=== PATIENT | female | born 1990 | race Caucasian/White ===

== ENCOUNTER → 2016-07-19 | Outpatient (CLI) | payer OTHER ==
[~2016-07-19] VITALS: Ht 157.5 cm; Wt 77.3 kg
[~2016-07-19] MED LIST: HYDR-4274 PO; LIDOCAINE 2% INJ 100 MG/5 ML SDV (FOR ANES.) As Ordered ONE; NS 1,000 ML IV SCH; OMEP20CA3 PO; PAXI30TA11 PO; PROPOFOL 500 MG/50 ML VIAL As Ordered ONE; ZONI100C2 PO
--- NOTE | 2016-07-19 12:56 | ROOR ---
Patient Name: Anisa Fiore Procedure Date: 07/19/2016 12:43 PM Date of : 1990 Age: 26 Room: [facility] Gender: Female Note Status: Finalized Procedure: Upper GI endoscopy Indications: Functional Dyspepsia, Heartburn Providers: Maurisio BELLA MD Referring MD: Ben Glez Requesting Provider: Medicines: Monitored Anesthesia Care Complications: No immediate complications. Procedure: Pre-Anesthesia Assessment: - The heart rate, respiratory rate, oxygen saturations, blood pressure, adequacy of pulmonary ventilation, and response to care were monitored throughout the procedure. The Endoscope was introduced through the mouth, and advanced to the second part of duodenum. The upper GI endoscopy was accomplished without difficulty. The patient tolerated the procedure well. Findings: The esophagus was normal. The stomach was normal. The examined duodenum was normal. Impression: - Normal esophagus. - Normal stomach. - Normal examined duodenum. - No specimens collected. Recommendation: - Continue present medications. - Observe patient's clinical course. Maurisio Bella MD Maurisio BELLA MD 07/19/2016 12:55:46 PM This report has been signed electronically. Number of Addenda: 0 Note Initiated On: 07/19/2016 12:43 PM Estimated Blood Loss: Estimated blood loss: none.
--- NOTE | 2016-07-19 13:06 | ROOR ---
Patient Name: Anisa Fiore Procedure Date: 07/19/2016 12:44 PM Date of : 1990 Age: 26 Room: OP02 Gender: Female Note Status: Finalized Procedure: Colonoscopy Indications: Hematochezia, Change in bowel habits Providers: Maurisio BELLA MD Referring MD: Ben Glez Requesting Provider: Medicines: Monitored Anesthesia Care Complications: No immediate complications. Procedure: Pre-Anesthesia Assessment: - The heart rate, respiratory rate, oxygen saturations, blood pressure, adequacy of pulmonary ventilation, and response to care were monitored throughout the procedure. The Colonoscope was introduced through the anus and advanced to 10 cm into the ileum. The colonoscopy was performed without difficulty. The patient tolerated the procedure well. The quality of the bowel preparation was good. Findings: The perianal and digital rectal examinations were normal. (Exam: Complete, Prep: Good or Excellent.) Retroflexion in the right colon was performed. The entire examined colon appeared normal on direct and retroflexion views. The terminal ileum appeared normal. Small Internal Hemorrhoids. Impression: - (Exam: Complete, Prep: Good or Excellent.) - The entire examined colon is normal on direct and retroflexion views. - The examined portion of the ileum was normal. - Small Internal Hemorrhoids. - No specimens collected. Recommendation: - Use fiber, for example Citrucel, Fibercon, Konsyl or Metamucil. Maurisio Bella MD Maurisio BELLA MD 07/19/2016 1:06:10 PM This report has been signed electronically. Number of Addenda: 0 Note Initiated On: 07/19/2016 12:44 PM Estimated Blood Loss: Estimated blood loss: none.
[2016-07-19 13:25] VITALS: BP 108/55
== END ==
LOC: M OPP 11:37
PROVIDERS: ATTEND Internal Medicine Gastroenterology
DX: K92.1 Melena (principal); K64.0 First degree hemorrhoids; R19.4 Change in bowel habit; K30 Functional dyspepsia; F32.9 Major depressive disorder, single episode, unspecified; G43.909 Migraine, unspecified, not intractable, without status migrainosus; Z88.2 Allergy status to sulfonamides; Z80.3 Family history of malignant neoplasm of breast; Z80.0 Family history of malignant neoplasm of digestive organs; Z80.1 Family history of malignant neoplasm of trachea, bronchus and lung; Z79.899 Other long term (current) drug therapy

== ENCOUNTER 2016-11-05 15:06 | Emergency (ER) | payer OTHER ==
[~2016-11-05] VITALS: Ht 157.5 cm; Wt 75.9 kg
[~2016-11-05 15:06] MED LIST changes: -LIDOCAINE 2% INJ 100 MG/5 ML SDV (FOR ANES.) As Ordered ONE; -NS 1,000 ML IV SCH; -PROPOFOL 500 MG/50 ML VIAL As Ordered ONE
[2016-11-05 15:07] VITALS: BP 126/79
[2016-11-05] MEDS ORDERED: MIRT30TA2 PO (15:21)
[2016-11-05] MEDS ORDERED: CLON0.5T PO (15:21)
--- NOTE | 2016-11-06 14:21 | ECGEPIP ---
Stationary ECG Study [facility] - ED Test Date: 2016-11-05 Pat Name: ANTONETTE BORJAS Department: Room: - Gender: F [employer] Operator: enid : 1990 Requested By: Chanelle Gardner Order Number: [id number] Reading MD: Chanelle Gardner Measurements Intervals Tiona Rate: 106 P: 71 NH: 158 QRS: 76 QRSD: 91 T: 55 QT: 325 QTc: 433 Interpretive Statements SINUS TACHYCARDIA POSSIBLE LEFT ATRIAL ENLARGEMENT NONSPECIFIC T-WAVE ABNORMALITY ABNORMAL RHYTHM ECG NO PRIOR FOR COMPARISON Electronically Signed On 11-06-2016 14:21:42 EDT by Chanelle Gardner
== END 2016-11-05 16:36 | disposition left against medical advice (07) ==
LOC: M ED 16:18
DX: R07.9 Chest pain, unspecified (principal); Z79.899 Other long term (current) drug therapy; Z88.2 Allergy status to sulfonamides; F41.9 Anxiety disorder, unspecified; F32.9 Major depressive disorder, single episode, unspecified; Z53.29 Procedure and treatment not carried out because of patient's decision for other reasons

== ENCOUNTER → 2016-12-16 | Outpatient (REF) | payer OTHER ==
[~2016-12-16] MED LIST changes: +CLON0.5T PO; -HYDR-4274 PO; +HYDR50TA70 PO; +MIRT30TA2 PO
== END ==
LOC: M LAB REF 09:22
PROVIDERS: ATTEND Physician Assistant
DX: M54.5 Low back pain (principal)

== ENCOUNTER → 2020-04-13 | Outpatient (CLI) | payer OTHER ==
[~2020-04-13] MED LIST changes: -CLON0.5T PO; +CLON0.5T2 PO; +MIRT1TAB16 PO; -MIRT30TA2 PO; +OMEP1CAP73 PO; -OMEP20CA3 PO; +ZONI100C17 PO; -ZONI100C2 PO
[2020-04-13 10:18] LABS: BASO % 0.4 % (0.0-1.0); EOS # 0.1 10^3/uL (0.0-0.5); EOS % 0.8 % (0.0-3.0); HEMATOCRIT 42.3 % (36.0-47.0); HEMOGLOBIN 14.7 g/dl (12.0-15.5); LYMPH # 2.4 10^3/uL (1.5-5.0); LYMPH % 23.7 % (24.0-44.0); MEAN CORPUSCULAR HEMOGLOBIN 30.5 pg (27.0-33.0); MEAN CORPUSCULAR HGB CONC 34.8 g/dl (32.0-36.5); MEAN CORPUSCULAR VOLUME 87.8 fl (80.0-96.0); MONO # 0.7 10^3/uL (0.0-0.8); MONO % 6.4 % (0.0-5.0); NEUTROPHILS % 68.3 % (36.0-66.0); PLATELET COUNT, AUTOMATED 191 10^3/uL (150-450); RED BLOOD COUNT 4.82 10^6/uL (4.00-5.40); WHITE BLOOD COUNT 10.3 10^3/uL (4.0-10.0)
[2020-04-13 10:54] LABS: ALBUMIN 4.5 GM/DL (3.2-5.2); ALT/SGPT 15 U/L (12-78); BILIRUBIN,TOTAL 0.5 MG/DL (0.2-1.0); BLOOD UREA NITROGEN 14 MG/DL (7-18); CALCIUM LEVEL 9.8 MG/DL (8.5-10.1); CARBON DIOXIDE LEVEL 29 MEQ/L (21-32); CHLORIDE LEVEL 106 MEQ/L (98-107); CHOLESTEROL LEVEL 154 MG/DL (<200); CHOLESTEROL RISK RATIO 3.276 (<5); CREATININE FOR GFR 0.84 MG/DL (0.55-1.30); FREE T4 0.95 NG/DL (0.76-1.46); GLOMERULAR FILTRATION RATE > 60.0 (>60); GLUCOSE, FASTING 89 MG/DL (70-100); HDL CHOLESTEROL 47 MG/DL (>40); LDL CHOLESTEROL 90 MG/DL (<100); NON-HDL-C 107 MG/DL; POTASSIUM SERUM 4.3 MEQ/L (3.5-5.1); SODIUM LEVEL 139 MEQ/L (136-145); TOTAL PROTEIN 8.3 GM/DL (6.4-8.2); TRIGLYCERIDES LEVEL 83 MG/DL (<150)
== END ==
LOC: M LAB 09:39
PROVIDERS: ATTEND Student in an Organized Health Care Education/Training Program
DX: F41.8 Other specified anxiety disorders (principal)

== ENCOUNTER → 2020-05-23 | Outpatient (CLI) | payer SELFPAY | LOC: M LABSMTC 17:50 | PROVIDERS: ATTEND Pediatrics | DX: Z11.59 Encounter for screening for other viral diseases (principal) ==

== ENCOUNTER → 2021-02-06 | Outpatient (REF) | LOC: M LAB 09:50 | PROVIDERS: ATTEND Nurse Practitioner Adult Health | DX: Z01.84 Encounter for antibody response examination (principal) ==

== ENCOUNTER 2021-03-02 07:04 | Emergency (ER) | payer OTHER, SELFPAY ==
[~2021-03-02] VITALS: Ht 160 cm; Wt 64.2 kg
[2021-03-02] MEDS: GASTROGRAFIN SOLUTION 30ML PO SCH ×2 (12:31→13:11)
[2021-03-02] MEDS ORDERED: ONDANSETRON 4MG/2ML VIAL IV ONE (12:35)
[2021-03-02 12:37] LABS: BASO % 0.2 % (0.0-1.0); EOS % 0.3 % (0.0-3.0); HEMATOCRIT 38.9 % (36.0-47.0); HEMOGLOBIN 13.7 g/dl (12.0-15.5); LYMPH % 9.6 % (24.0-44.0); MEAN CORPUSCULAR HEMOGLOBIN 30.4 pg (27.0-33.0); MEAN CORPUSCULAR HGB CONC 35.2 g/dl (32.0-36.5); MEAN CORPUSCULAR VOLUME 86.3 fl (80.0-96.0); MONO # 0.6 10^3/uL (0.0-0.8); MONO % 5.7 % (2.0-8.0); NEUTROPHILS # 8.7 10^3/uL (1.5-8.5); NEUTROPHILS % 83.7 % (36.0-66.0); PLATELET COUNT, AUTOMATED 172 10^3/uL (150-450); RED BLOOD COUNT 4.51 10^6/uL (4.00-5.40); WHITE BLOOD COUNT 10.3 10^3/uL (4.0-10.0)
[2021-03-02 12:58] LABS: ALBUMIN 4.5 GM/DL (3.2-5.2); ALT/SGPT 17 U/L (12-78); BILIRUBIN,DIRECT 0.2 MG/DL (0.0-0.2); BILIRUBIN,TOTAL 0.6 MG/DL (0.2-1.0); C REACTIVE PROTEIN QUANTITATIV 4.37 MG/DL (0.00-0.30); LIPASE 147 U/L (73-393)
[2021-03-02] MEDS ORDERED: ISOVUE-370 76% 100ML VIAL As Ordered ONE (13:56)
--- NOTE | 2021-03-02 14:11 | REP ---
INDICATION: pelvic pain. COMPARISON: CT 04/08/2013. TECHNIQUE: Transabdominal and transvaginal scanning performed. FINDINGS: Uterine dimensions are 7.9 x 3.8 x 5.2 cm. Endometrial echo is 6 mm in AP dimension and centrally placed. The bladder measures 3.8 x 3.1 x 8.9cm. The right ovary has dimensions of 3.5 x 1.7 x 2.6 cm. It's Doppler flow is normal with a resistive index of 0.56. The left ovary dimensions are 3.6 x 1.6 x 2.7 cm. There is internal Doppler venous flow seen within the left ovary. In the right adnexa along the right ovarian margin there is a hyperechoic nodule measuring 2.0 x 2.0 x 2.9 cm. There appears to be internal blood flow suggesting that this is solid. No free fluid is seen in the cul-de-sac. The appendix is not visualized. IMPRESSION: No evidence of ovarian torsion. There is a nodule in the right adnexal along the right ovarian margin 2.9 cm maximally, which appears to be solid. Recommend follow-up nonemergent MRI of the pelvis. The appendix is not visualized. No free fluid. <Electronically signed by Giovanni Wei > 03/02/21 [id number]
--- NOTE | 2021-03-02 15:12 | REP ---
INDICATION: right lower quadrant pain COMPARISON: 04/08/2013. TECHNIQUE: CT Scan of the abdomen and pelvis was performed with intravenous administration of 100 cc of Isovue 370, and oral contrast. Sagittal and coronal reconstruction images are performed. FINDINGS: Lung bases: Unremarkable. Liver: Liver is mildly enlarged measuring 18.9 cm in length Gallbladder: Unremarkable. Spleen: Normal. Adrenals: Normal. Pancreas: Normal. Kidneys: Normal. Small and large bowel: Unremarkable. Free fluid: None. Abdominal aorta: No aneurysm or dissection. Adenopathy: None. Appendix: Not inflamed. Osseous structures: Unremarkable. Pelvis: No mass. The ovaries are not optimally evaluated. IMPRESSION: Mild hepatomegaly. No acute pathology. <Electronically signed by Giovanni Wei > 03/02/21 [id number]
[2021-03-02 15:54] LABS: HCG, SERUM QUALITATIVE NEGATIVE (NEGATIVE)
[2021-03-02 15:59] VITALS: BP 130/67
[2021-03-02 16:14] LABS: GC DNA AMPLIFICATION NEGATIVE (NEGATIVE)
[2021-03-02 18:04] LABS: BLOOD UREA NITROGEN 8 MG/DL (7-18); CALCIUM LEVEL 9.3 MG/DL (8.5-10.1); CARBON DIOXIDE LEVEL 26 MEQ/L (21-32); CHLORIDE LEVEL 105 MEQ/L (98-107); GLOMERULAR FILTRATION RATE > 60.0 (>60); GLUCOSE, FASTING 91 MG/DL (70-100); POTASSIUM SERUM 3.6 MEQ/L (3.5-5.1); SODIUM LEVEL 141 MEQ/L (136-145)
--- NOTE | 2021-03-03 08:56 | ED PDOC ---
Post-Departure Follow-Up radiology repor tfaxed to jakub Navarro Sarah MD Mar 03, 2021 08:56
== END 2021-03-02 16:00 | disposition home or self-care (01) ==
LOC: M ED 07:04
DX: R16.0 Hepatomegaly, not elsewhere classified (principal); N83.9 Noninflammatory disorder of ovary, fallopian tube and broad ligament, unspecified; F12.10 Cannabis abuse, uncomplicated; Z88.2 Allergy status to sulfonamides
CPT/HCPCS: 74177; 76830; 76856; 80047; 80048; 80076; 81001; 83605; 83690; 84703; 85025; 86140; 87661; 93976; 96374; 99284; J2405; Q9963; Q9967

== ENCOUNTER → 2021-04-16 | Outpatient (CLI) | payer OTHER ==
[~2021-04-16] MED LIST changes: +PROHANCE 279.3MG/ML 15ML VIAL ONE
--- NOTE | 2021-04-16 11:11 | REP ---
INDICATION: ADNEXAL MASS, RT SIDE. COMPARISON: CT and pelvic ultrasound 03/02/2021. TECHNIQUE: Multiple sequences obtained in the axial, coronal and sagittal planes prior to and following the intravenous administration of 13 cc ProHance. FINDINGS: Uterine length is approximately 12 cm. Endometrial thickness is approximately 5 mm. The junctional zone is intact. Multiple nabothian cysts are seen in the cervix. There is an involuting cyst or dominant follicle of the left ovary measuring approximately 2.2 cm in diameter. Otherwise no ovarian mass is seen bilaterally. A metallic clip is seen adjacent to the right ovary. There is mild free fluid in the cul-de-sac. No other evidence of mass or adenopathy in the pelvis. The visualized osseous structures appear unremarkable. IMPRESSION: Involuting cyst or dominant follicle left ovary 2.2 cm in diameter. Otherwise no evidence of ovarian or adnexal mass bilaterally. There is mild free fluid in the cul-de-sac. There is metallic clip in the right adnexa adjacent to the right ovary. <Electronically signed by Giovanni Wei > 04/16/21 [id number]
== END ==
LOC: M PLAIMG 07:43
PROVIDERS: ATTEND Nurse Practitioner Women's Health
DX: N94.89 Other specified conditions associated with female genital organs and menstrual cycle (principal); N88.8 Other specified noninflammatory disorders of cervix uteri
CPT/HCPCS: 72197; A9576

== ENCOUNTER → 2022-01-29 | Outpatient (REF) | payer OTHER ==
[~2022-01-29] MED LIST changes: -PROHANCE 279.3MG/ML 15ML VIAL ONE; -ZONI100C17 PO; +ZONI100C67 PO
[2022-01-29 12:10] LABS: BASO % 0.3 % (0.0-1.0); EOS # 0.1 10^3/uL (0.0-0.5); EOS % 0.8 % (0.0-3.0); HEMATOCRIT 40.9 % (36.0-47.0); HEMOGLOBIN 14.1 g/dl (12.0-15.5); LYMPH # 1.8 10^3/uL (1.5-5.0); LYMPH % 19.6 % (24.0-44.0); MEAN CORPUSCULAR HEMOGLOBIN 31.1 pg (27.0-33.0); MEAN CORPUSCULAR HGB CONC 34.5 g/dl (32.0-36.5); MEAN CORPUSCULAR VOLUME 90.3 fl (80.0-96.0); MONO # 0.6 10^3/uL (0.0-0.8); NEUTROPHILS # 6.8 10^3/uL (1.5-8.5); NEUTROPHILS % 73.1 % (36.0-66.0); PLATELET COUNT, AUTOMATED 200 10^3/uL (150-450); RED BLOOD COUNT 4.53 10^6/uL (4.00-5.40); WHITE BLOOD COUNT 9.3 10^3/uL (4.0-10.0)
[2022-01-29 12:22] LABS: APPEARANCE, URINE MANUAL CLEAR (CLEAR); COLOR, URINE MANUAL YELLOW (YELLOW); SPECIFIC GRAVITY,URINE MANUAL 1.004 (1.002-1.035)
[2022-01-29 12:23] LABS: BILIRUBIN, URINE MANUAL NEGATIVE (NEGATIVE); BLOOD URINE MANUAL POSITIVE (NEGATIVE); GLUCOSE, URINE (UA) MANUAL NEGATIVE (NEGATIVE); KETONE, URINE MANUAL NEGATIVE (NEGATIVE); LEUKOCYTE ESTERASE, URINE MAN NEGATIVE (NEGATIVE); NITRITE, URINE MANUAL NEGATIVE (NEGATIVE); PROTEIN, URINE MANUAL NEGATIVE (NEGATIVE); UROBILINOGEN, URINE MANUAL NORMAL (NORMAL)
[2022-01-29 12:45] LABS: ALBUMIN 4.8 GM/DL (3.2-5.2); ALT/SGPT 20 U/L (12-78); BILIRUBIN,TOTAL 0.4 MG/DL (0.2-1.0); BLOOD UREA NITROGEN 12 MG/DL (7-18); CALCIUM LEVEL 9.8 MG/DL (8.5-10.1); CARBON DIOXIDE LEVEL 28 MEQ/L (21-32); CHLORIDE LEVEL 106 MEQ/L (98-107); COMPLEMENT C3 109 MG/DL (90-180); COMPLEMENT C4 23 MG/DL (10-40); CREATININE FOR GFR 0.79 MG/DL (0.55-1.30); GLOMERULAR FILTRATION RATE > 60.0 (>60); GLUCOSE, FASTING 87 MG/DL (70-100); POTASSIUM SERUM 3.7 MEQ/L (3.5-5.1); SODIUM LEVEL 138 MEQ/L (136-145); TOTAL PROTEIN 7.8 GM/DL (6.4-8.2)
[2022-01-29 12:54] LABS: AMORPHOUS SEDIMENT, URINE SMALL AMOUNT (NEGATIVE); BACTERIA, URINE NONE SEEN; HYALINE CAST, URINE NONE SEEN /lpf (0-1); RBC, URINE 0-1 /hpf (0-3); SQUAMOUS EPITHELIAL CELL URINE NONE SEEN /hpf (SMALL AMT); WBC, URINE 0-1 /hpf (0-3)
[2022-01-29 12:56] LABS: ERYTHROCYTE SEDIMENTATION RATE 8 mm/hr (0-20)
[2022-01-29 13:05] LABS: CREATININE,RANDOM URINE 13.1 MG/DL; TOTAL PROTEIN,RANDOM URINE 6.6 MG/DL (0.0-12.0)
== END ==
LOC: M SFHCRHEU 08:47
PROVIDERS: ATTEND Internal Medicine Rheumatology
DX: R76.8 Other specified abnormal immunological findings in serum (principal); M25.50 Pain in unspecified joint; I73.00 Raynaud's syndrome without gangrene; M35.00 Sjogren syndrome, unspecified

== ENCOUNTER → 2022-02-21 | Outpatient (CLI) | payer OTHER | LOC: M RAD 06:19 | PROVIDERS: ATTEND Internal Medicine Rheumatology | DX: R76.8 Other specified abnormal immunological findings in serum (principal); M25.50 Pain in unspecified joint; I73.00 Raynaud's syndrome without gangrene; M35.00 Sjogren syndrome, unspecified ==

== ENCOUNTER → 2022-03-07 | Outpatient (REF) | payer OTHER | LOC: M SFHCWAGY 13:12 | PROVIDERS: ATTEND Specialist | DX: Z12.4 Encounter for screening for malignant neoplasm of cervix (principal); Z77.9 Other contact with and (suspected) exposures hazardous to health ==

== ENCOUNTER → 2022-05-20 | Outpatient (CLI) | payer OTHER ==
[~2022-05-20] MED LIST changes: +DULO1CAP5 PO; +HYDR-643 PO; +SUMA25TA3 PO
== END ==
LOC: M LABSMTC 09:18
PROVIDERS: ATTEND Anesthesiology
DX: Z01.812 Encounter for preprocedural laboratory examination (principal); Z20.822 Contact with and (suspected) exposure to COVID-19

== ENCOUNTER → 2022-06-11 | Outpatient (CLI) | payer OTHER ==
[~2022-06-11] MED LIST changes: +ACET-907 PO; +IBUP200C28 PO; -PAXI30TA11 PO; +PAXI30TA12 PO
== END ==
LOC: M LABSMTC 09:11
PROVIDERS: ATTEND Anesthesiology
DX: Z01.818 Encounter for other preprocedural examination (principal)

== ENCOUNTER 2022-06-13 08:30 | Day surgery (SDC) | payer OTHER ==
[~2022-06-13] VITALS: Ht 160 cm; Wt 63.2 kg
[~2022-06-13 08:30] MED LIST changes: +SUGAMMADEX SODIUM 500 MG/5 ML VIAL (BRIDION) As Ordered ONE
[2022-06-13] MEDS ORDERED: LR 1,000 ML IV SCH (08:55)
[2022-06-13] MEDS ORDERED: LIDOCAINE 2% 100MG/5ML SDV (FOR ANES.) As Ordered ONE (08:59)
[2022-06-13] MEDS ORDERED: propofoL 200 MG/20 ML VIAL As Ordered ONE (08:59)
[2022-06-13] MEDS ORDERED: MIDAZOLAM INJ 2MG/2ML VIAL (J2250 PER 1MG) As Ordered ONE (09:00)
[2022-06-13] MEDS ORDERED: ONDANSETRON 4MG 2ML VIAL As Ordered ONE (09:00)
[2022-06-13] MEDS ORDERED: fentaNYL 100 MCG/2 ML INJECTION As Ordered ONE (09:00)
[2022-06-13 09:20] LABS: HEMATOCRIT 39.4 % (36.0-47.0); HEMOGLOBIN 13.4 g/dl (12.0-15.5); MEAN CORPUSCULAR HEMOGLOBIN 30.9 pg (27.0-33.0); PLATELET COUNT, AUTOMATED 179 10^3/uL (150-450); RED BLOOD COUNT 4.33 10^6/uL (4.00-5.40); WHITE BLOOD COUNT 5.4 10^3/uL (4.0-10.0)
[2022-06-13] MEDS ORDERED: fentaNYL 100 MCG/2 ML INJECTION IV PRN (09:30)
[2022-06-13] MEDS ORDERED: ONDANSETRON 4MG 2ML VIAL IV PRN (09:30)
[2022-06-13] MEDS ORDERED: oxyCODONE 5MG TAB PO PRN (09:30)
[2022-06-13] MEDS ORDERED: SCOPOLAMINE 1MG TRANSDERMAL PATCH TOP SCH (09:30)
[2022-06-13] MEDS ORDERED: SCOPOLAMINE 1MG TRANSDERMAL PATCH TOP ONE (10:00)
[2022-06-13] MEDS ORDERED: KETOROLAC 60MG 2ML VIAL As Ordered ONE (10:24)
[2022-06-13] MEDS ORDERED: ACETAMINOPHEN 1000MG 100ML IV BAG As Ordered ONE (10:24)
[2022-06-13] MEDS ORDERED: METOCLOPRAMIDE INJ 10MG/2ML VIAL As Ordered ONE (10:27)
[2022-06-13 11:49] VITALS: BP 125/72
== END 2022-06-13 12:06 | disposition home or self-care (01) ==
LOC: M SDC 08:30
PROVIDERS: ATTEND Specialist
DX: N92.0 Excessive and frequent menstruation with regular cycle (principal); J45.909 Unspecified asthma, uncomplicated; G43.909 Migraine, unspecified, not intractable, without status migrainosus; K21.9 Gastro-esophageal reflux disease without esophagitis; F41.9 Anxiety disorder, unspecified; F32.A Depression, unspecified; D64.9 Anemia, unspecified; Z79.899 Other long term (current) drug therapy
CPT/HCPCS: 36415; 58563; 85027; 88305; J0131; J1100; J1885; J2250; J2405; J2765; J3010

== ENCOUNTER → 2023-05-19 | Outpatient (REF) ==
[~2023-05-19] MED LIST changes: -SUGAMMADEX SODIUM 500 MG/5 ML VIAL (BRIDION) As Ordered ONE
== END ==
LOC: M EMP 16:07
PROVIDERS: ATTEND Family Medicine
DX: Z11.52 Encounter for screening for COVID-19 (principal)

== ENCOUNTER → 2023-06-30 | Outpatient (REF) | LOC: M EMP 14:59 | PROVIDERS: ATTEND Family Medicine | DX: Z53.9 Procedure and treatment not carried out, unspecified reason (principal) ==

== ENCOUNTER 2024-01-19 14:14 | Outpatient (RCR) | payer BC | END 2024-02-14 | LOC: M PT 14:14 | PROVIDERS: ATTEND Specialist | DX: R32 Unspecified urinary incontinence (principal) ==

== ENCOUNTER → 2024-02-26 | Outpatient (REF) | payer BC ==
[2024-02-28 13:46] LABS: HPV APTIMA Not Detected (Not Detected)
== END ==
LOC: M SFHCWAGY 13:13
PROVIDERS: ATTEND Specialist
DX: Z12.4 Encounter for screening for malignant neoplasm of cervix (principal)
CPT/HCPCS: 87624; G0123

== ENCOUNTER → 2024-03-18 | Outpatient (CLI) | payer BC ==
[2024-03-18 08:08] LABS: HEMATOCRIT 38.9 % (36.0-47.0); HEMOGLOBIN 13.9 g/dl (12.0-15.5); MEAN CORPUSCULAR HEMOGLOBIN 31.9 pg (27.0-33.0); MEAN CORPUSCULAR HGB CONC 35.7 g/dl (32.0-36.5); MEAN CORPUSCULAR VOLUME 89.2 fl (80.0-96.0); PLATELET COUNT, AUTOMATED 200 10^3/uL (150-450); RED BLOOD COUNT 4.36 10^6/uL (4.00-5.40); WHITE BLOOD COUNT 9.9 10^3/uL (4.0-10.0)
[2024-03-18 08:39] LABS: CHOLESTEROL RISK RATIO 3.05 (<5); HDL CHOLESTEROL 47.2 MG/DL (>40); LDL CHOLESTEROL 77.6 MG/DL (<100); NON-HDL-C 96.8 MG/DL
[2024-03-18 08:40] LABS: FREE T4 1.33 NG/DL (0.89-1.76); THYROID STIMULATING HORMONE 1.497 uIU/ML (0.55-4.78)
[2024-03-18 09:46] LABS: HEMOGLOBIN A1c 4.9 % (4.0-6.0)
[2024-03-23 12:57] LABS: ANA PATTERN Nuclear, Nucleolar (NEGATIVE); ANA PATTERN 2 Nuclear, Speckled; ANA SCREEN, IFA POSITIVE (NEGATIVE); ANA TITER 2 1:40 titer (NEGATIVE)
== END ==
LOC: M LAB 07:13
PROVIDERS: ATTEND Physician Assistant
DX: E55.9 Vitamin D deficiency, unspecified (principal); F41.1 Generalized anxiety disorder; R76.0 Raised antibody titer

== ENCOUNTER → 2024-03-23 | Outpatient (CLI) | payer BC | LOC: M LAB 06:36 | PROVIDERS: ATTEND Registered Nurse Psychiatric/Mental Health | DX: F43.20 Adjustment disorder, unspecified (principal) ==

== ENCOUNTER → 2024-06-10 | Outpatient (REF) | payer BC ==
[2024-06-13 13:32] LABS: ACETONE, URINE None Detected; ETHANOL, URINE None Detected; ISOPROPANOL, URINE None Detected; METHANOL, URINE None Detected
== END ==
LOC: M LAB REF 09:19
PROVIDERS: ATTEND Registered Nurse Psychiatric/Mental Health
DX: F43.20 Adjustment disorder, unspecified (principal)

== ENCOUNTER 2024-07-12 07:49 | Day surgery (SDC) | payer BC ==
[~2024-07-12] VITALS: Ht 160 cm; Wt 67.6 kg
[~2024-07-12 07:49] MED LIST changes: +HYDR50CA2 PO; +METH20TA31 PO; +METH5TAB76 PO; +MULTTAB20 PO; +ONDA-282 PO; +VITA100093 PO
[2024-07-12] MEDS ORDERED: MIDAZOLAM INJ 2MG/2ML VIAL As Ordered ONE (08:11)
[2024-07-12] MEDS ORDERED: ONDANSETRON 4MG 2ML VIAL As Ordered ONE (08:11)
[2024-07-12] MEDS ORDERED: propofoL 200 MG/20 ML VIAL As Ordered ONE (08:11)
[2024-07-12] MEDS ORDERED: fentaNYL 100 MCG/2 ML INJECTION As Ordered ONE (08:11)
[2024-07-12] MEDS ORDERED: ROCURONIUM BROMIDE 50MG/5ML VIAL As Ordered ONE (08:11)
[2024-07-12] MEDS ORDERED: LIDOCAINE 2% 100MG/5ML SDV (FOR ANES.) As Ordered ONE (08:11)
[2024-07-12] MEDS ORDERED: ACETAMINOPHEN 1000MG/100ML IV BAG As Ordered ONE (08:12)
[2024-07-12] MEDS ORDERED: NS (Normal Saline) 0.9% 1,000 ML IV SCH ×2 (08:15→12:15)
[2024-07-12 08:26] LABS: HEMATOCRIT 37.5 % (36.0-47.0); HEMOGLOBIN 13.5 g/dl (12.0-15.5); MEAN CORPUSCULAR HEMOGLOBIN 30.7 pg (27.0-33.0); MEAN CORPUSCULAR VOLUME 85.2 fl (80.0-96.0); PLATELET COUNT, AUTOMATED 193 10^3/uL (150-450); WHITE BLOOD COUNT 15.2 10^3/uL (4.0-10.0)
[2024-07-12] MEDS: MORPHINE 2 MG/ML 1ML VIAL IV ONE (08:53)
[2024-07-12] MEDS: SCOPOLAMINE 1MG TRANSDERMAL PATCH TOP ONE (08:55)
[2024-07-12] MEDS ORDERED: OXYC1TAB23 PO (10:00)
[2024-07-12] MEDS ORDERED: IBUP-1022 PO (10:00)
[2024-07-12] MEDS ORDERED: COLA100C5 PO (10:01)
[2024-07-12] MEDS: ceFAZolin SOD 2 GM in IV 1 EA IV ONE (10:14)
[2024-07-12] MEDS ORDERED: GLYCOPYRROLATE INJ 0.2 MG/ML 2 ML VIAL As Ordered ONE (10:39)
[2024-07-12] MEDS ORDERED: ePHEDrine SULFATE 25 MG/5 ML(5MG/ML) SYRINGE As Ordered ONE (10:40)
[2024-07-12] MEDS ORDERED: PHENYLephrine 500MCG 5ML (100MCG/ML) SYRINGE As Ordered ONE (10:40)
[2024-07-12] MEDS ORDERED: KETOROLAC 60MG 2ML VIAL As Ordered ONE (10:48)
[2024-07-12] MEDS ORDERED: SUGAMMADEX SODIUM 500 MG/5 ML VIAL (BRIDION) As Ordered ONE (10:48)
[2024-07-12] MEDS ORDERED: METOCLOPRAMIDE INJ 10MG/2ML VIAL As Ordered ONE (11:06)
[2024-07-12] MEDS ORDERED: fentaNYL 100 MCG/2 ML INJECTION IV PRN (12:15)
[2024-07-12] MEDS: HYDROMORPHONE HCL 0.5 MG/ 0.5 ML SYRINGE IV PRN (12:34)
[2024-07-12] MEDS: ONDANSETRON 4MG 2ML VIAL IV PRN (12:34)
[2024-07-12] MEDS: oxyCODONE 5MG TAB PO PRN (13:10)
[2024-07-12 14:17] VITALS: BP 138/70; TEMP 97.5; O2SAT 99
== END 2024-07-12 14:30 | disposition home or self-care (01) ==
LOC: M SDC 07:49
PROVIDERS: ATTEND Specialist
DX: D25.1 Intramural leiomyoma of uterus (principal); N88.8 Other specified noninflammatory disorders of cervix uteri; N83.8 Other noninflammatory disorders of ovary, fallopian tube and broad ligament; N94.6 Dysmenorrhea, unspecified; R10.2 Pelvic and perineal pain; Z98.51 Tubal ligation status; N73.6 Female pelvic peritoneal adhesions (postinfective); J45.909 Unspecified asthma, uncomplicated; K21.9 Gastro-esophageal reflux disease without esophagitis; I73.00 Raynaud's syndrome without gangrene; Z79.899 Other long term (current) drug therapy; Z88.2 Allergy status to sulfonamides; G43.909 Migraine, unspecified, not intractable, without status migrainosus; F41.9 Anxiety disorder, unspecified; F32.A Depression, unspecified; Z90.89 Acquired absence of other organs
CPT/HCPCS: 36415; 58570; 85027; 86850; 86900; 86901; 88307; J0131; J0665; J0690; J1100; J1171; J1596; J1885; J2250; J2371; J2405; J2765; J3010; S2900

== ENCOUNTER → 2025-02-01 | Outpatient (CLI) | payer BC ==
[~2025-02-01] MED LIST changes: +COLA100C5 PO; +IBUP-1022 PO; +OXYC1TAB23 PO
== END ==
LOC: M LAB 06:40
PROVIDERS: ATTEND Registered Nurse Psychiatric/Mental Health
DX: F43.20 Adjustment disorder, unspecified (principal)

== ENCOUNTER → 2025-04-22 | Outpatient (CLI) | payer BC ==
[~2025-04-22] MED LIST changes: -IBUP-1022 PO; +IBUP600T42 PO
== END ==
LOC: M SOG 11:26
PROVIDERS: ATTEND Physician Assistant
DX: M54.2 Cervicalgia (principal)

== ENCOUNTER → 2025-05-24 | Outpatient (CLI) | payer BC | LOC: M PLAIMG 14:09 | PROVIDERS: ATTEND Physician Assistant | DX: M50.10 Cervical disc disorder with radiculopathy, unspecified cervical region (principal) ==